=== PATIENT | female | born 1995 | race African-American/Black ===

== ENCOUNTER 2018-06-14 18:45 | Emergency (ER) | payer MEDICAID ==
[~2018-06-14] VITALS: Ht 170.2 cm; Wt 146.4 kg
[2018-06-14] MEDS ORDERED: SODIUM CHLORIDE FLUSH 10ML SYR IVF ONE (19:00)
[2018-06-14 19:17] LABS: ANION GAP 8 mmol/L (5-15); CALCIUM 8.8 mg/dL (8.5-10.1); CHLORIDE 107 mmol/L (98-107); CREATININE 0.97 mg/dL (0.55-1.02)
[2018-06-14 19:18] LABS: ALANINE AMINOTRANSFERASE 23 U/L (12-78); ALBUMIN 3.5 g/dL (3.4-5.0)
[2018-06-14 19:22] LABS: ALKALINE PHOSPHATASE 64 U/L (45-117); BILIRUBIN,TOTAL 0.2 mg/dL (0.2-1.0); TOTAL PROTEIN 8.5 g/dL (6.4-8.2)
[2018-06-14] MEDS ORDERED: ONDANSETRON 2MG/ML, 2ML IVPush ONE (19:30)
[2018-06-14] MEDS ORDERED: MORPHINE SULFATE 4 MG/ML, 1ML IVPush ONE (19:30)
[2018-06-14] MEDS ORDERED: MEDR150D3 IM (19:33)
[2018-06-14] MEDS ORDERED: ONDANSETRON 2MG/ML, 2ML ONE (19:36)
[2018-06-14] MEDS ORDERED: MORPHINE SULFATE 4 MG/ML, 1ML ONE (19:36)
[2018-06-14 19:41] LABS: MEAN CORPUSCULAR HEMOGLOBIN 27.7 pg (27.0-34.8); MEAN CORPUSCULAR HGB CONC 33.2 g/dL (32.4-35.8); MEAN CORPUSCULAR VOLUME 83.5 fL (80-100); MEAN PLATELET VOLUME 8.9 fL (7.4-10.4); PLATELET COUNT 409 x10^3/uL (130-400); RED BLOOD COUNT 4.54 x10^6/uL (3.82-5.3)
[2018-06-14 19:41] LABS: CULTURE INDICATED? YES; MICROSCOPIC INDICATED
[2018-06-14] MEDS ORDERED: OMNIPAQUE 350 MG/ML, 100ML BOTTLE ONE (20:01)
[2018-06-14 20:03] LABS: BASOPHILS # (AUTO) 0.03 x10^3/uL (0-0.1); BASOPHILS % (AUTO) 0 % (0-1); EOSINOPHILS # (AUTO) 0.45 x10^3/uL (0-0.4); EOSINOPHILS % (AUTO) 6 % (1-7); LYMPHOCYTES # (AUTO) 2.76 x10^3/uL (1-3.4); LYMPHOCYTES % (AUTO) 35 % (22-44); MD SCAN; MONOCYTES # (AUTO) 0.79 x10^3/uL (0.2-0.8); MONOCYTES % (AUTO) 10 % (2-9); NEUTROPHILS # (AUTO) 3.97 x10^3/uL (1.8-6.8); NEUTROPHILS % (AUTO) 50 % (42-75)
[2018-06-14 20:39] LABS: MICROSCOPIC INDICATED
[2018-06-14 20:40] LABS: CULTURE INDICATED? YES
[2018-06-14 21:00] VITALS: BP 110/57
== END 2018-06-14 21:18 | disposition home or self-care (01) ==
LOC: ED 20:04
DX: N39.0 Urinary tract infection, site not specified (principal)
CPT/HCPCS: 36415; 74177; 80053; 81001; 83690; 84703; 85025; 87077; 87086; 96374; 96375; 99285; J2405; Q9967; 87186

== ENCOUNTER → 2019-10-10 | Outpatient (CLI) | payer MEDICAID ==
[~2019-10-10] MED LIST: MEDR150D3 IM
== END | disposition home or self-care (01) ==
LOC: RAD 16:19
PROVIDERS: ATTEND Physician Assistant
DX: N39.0 Urinary tract infection, site not specified (principal); E28.2 Polycystic ovarian syndrome; N93.9 Abnormal uterine and vaginal bleeding, unspecified; Z90.721 Acquired absence of ovaries, unilateral
CPT/HCPCS: 76830